=== PATIENT | male | born 1955 | race Caucasian/White ===

== ENCOUNTER → 2017-06-12 | Outpatient (CLI) | payer MEDICARE | END | disposition home or self-care (01) | LOC: CFH 14:53 | PROVIDERS: ATTEND Physician Assistant Medical | DX: I37.1 Nonrheumatic pulmonary valve insufficiency (principal); I71.02 Dissection of abdominal aorta; I77.819 Aortic ectasia, unspecified site; I51.7 Cardiomegaly | CPT/HCPCS: 93306 ==